=== PATIENT | male | born 1995 | race Native Hawaiian/Other Pacific Islander ===

== ENCOUNTER 2021-12-11 13:56 | Emergency (ER) | payer OTHER ==
[~2021-12-11] VITALS: Ht 175.3 cm; Wt 97.5 kg
[2021-12-11 13:59] VITALS: BP 167/103; TEMP 98.6
== END 2021-12-11 17:22 | disposition home or self-care (01) ==
LOC: ED 13:56
DX: H60.8X1 Other otitis externa, right ear (principal)
CPT/HCPCS: 96372; 99282; J1885